=== PATIENT | female | born 1980 | race Asian ===

== ENCOUNTER → 2016-07-23 | Outpatient (CLI) | payer OTHER ==
[~2016-07-23] MED LIST: ACET-749 PO; MTR600X PO; PRENTAB26 PO
[2016-07-23 13:40] LABS: URINE APPEARANCE CLEAR (CLEAR); URINE BILIRUBIN NEG (NEG); URINE COLOR YELLOW; URINE NITRITE NEG (NEG); URINE SPECIFIC GRAVITY 1.003 (1.000-1.030); UROBILINOGEN NEG (NEG)
[2016-07-23 13:50] LABS: MANUAL MICROSCOPIC REQUIRED? NO; REVIEW REQ? NO
== END | disposition home or self-care (01) ==
LOC: C.LABSPEC 14:16
PROVIDERS: ATTEND Obstetrics & Gynecology
DX: O09.521 Supervision of elderly multigravida, first trimester (principal); Z3A.00 Weeks of gestation of pregnancy not specified

== ENCOUNTER → 2016-07-27 | Outpatient (CLI) | payer OTHER ==
[2016-07-29 16:31] LABS: CHLAMYDIA TRACH RNA*** NOT DETECTED (NOT DETECTED); GC (NEIS GONORRHOEAE)RNA** NOT DETECTED (NOT DETECTED)
== END | disposition home or self-care (01) ==
LOC: C.LABSPEC 13:52
PROVIDERS: ATTEND Obstetrics & Gynecology
DX: O09.521 Supervision of elderly multigravida, first trimester (principal)

== ENCOUNTER → 2016-08-24 | Outpatient (CLI) | payer OTHER ==
[2016-08-24 12:14] LABS: BASO % 0.3 %; BASO ABS # 0.02 K/uL (0-0.2); COMPLETE YES; EOS % 0.3 %; HEMATOCRIT 38.5 % (37-47); IG% 0.6 %; LYMPH % 18.1 %; LYMPH ABS # 1.43 K/uL (1.2-3.4); MEAN CELL VOLUME 87.9 fL (80-100); MEAN CORPUSCULAR HEMOGLOBIN 29.9 pg (25-34); MEAN PLATELET VOLUME 10.2 fL (7.4-10.4); MONO % 7.2 %; NEUT % 73.5 %; PLATELET COUNT 231 K/uL (130-400); RED BLOOD COUNT 4.38 M/uL (4.2-5.4); WHITE BLOOD COUNT 7.89 K/uL (4.8-10.8)
== END | disposition home or self-care (01) ==
LOC: C.LAB1850 09:32
PROVIDERS: ATTEND Obstetrics & Gynecology
DX: O09.521 Supervision of elderly multigravida, first trimester (principal)

== ENCOUNTER → 2016-09-14 | Outpatient (CLI) | payer OTHER ==
[2016-09-14 15:15] LABS: GTGD 50 Grams
== END | disposition home or self-care (01) ==
LOC: C.LAB1850 11:54
PROVIDERS: ATTEND Obstetrics & Gynecology
DX: O09.522 Supervision of elderly multigravida, second trimester (principal)

== ENCOUNTER → 2016-09-22 | Outpatient (CLI) | payer OTHER | END | disposition home or self-care (01) | LOC: C.LAB1850 07:11 | PROVIDERS: ATTEND Obstetrics & Gynecology | DX: O28.9 Unspecified abnormal findings on antenatal screening of mother (principal); Z3A.00 Weeks of gestation of pregnancy not specified ==

== ENCOUNTER → 2016-12-09 | Outpatient (CLI) | payer OTHER ==
[2016-12-09 11:46] LABS: URINE APPEARANCE CLEAR (CLEAR); URINE BILIRUBIN NEG (NEG); URINE COLOR YELLOW; URINE EPITHELIAL CELL AUTO 20-30 /lpf (0-5); URINE NITRITE NEG (NEG); URINE SPECIFIC GRAVITY 1.011 (1.000-1.030); UROBILINOGEN NEG (NEG)
[2016-12-09 11:58] LABS: MANUAL MICROSCOPIC REQUIRED? NO; REVIEW REQ? NO
== END | disposition home or self-care (01) ==
LOC: C.LABSPEC 11:12
PROVIDERS: ATTEND Obstetrics & Gynecology
DX: O09.293 Supervision of pregnancy with other poor reproductive or obstetric history, third trimester (principal); Z3A.00 Weeks of gestation of pregnancy not specified

== ENCOUNTER → 2016-12-23 | Outpatient (CLI) | payer OTHER ==
[2016-12-23 12:29] LABS: HEMATOCRIT 38.6 % (37-47)
== END | disposition home or self-care (01) ==
LOC: C.LAB1850 10:58
PROVIDERS: ATTEND Obstetrics & Gynecology
DX: O09.293 Supervision of pregnancy with other poor reproductive or obstetric history, third trimester (principal); Z3A.00 Weeks of gestation of pregnancy not specified

== ENCOUNTER → 2017-02-03 | Outpatient (CLI) | payer OTHER | END | disposition home or self-care (01) | LOC: C.LABSPEC 13:17 | PROVIDERS: ATTEND Obstetrics & Gynecology | DX: O09.523 Supervision of elderly multigravida, third trimester (principal); Z3A.00 Weeks of gestation of pregnancy not specified ==

== ENCOUNTER 2017-02-20 03:08 | Inpatient (IN) | payer OTHER ==
[~2017-02-20] VITALS: Ht 170.2 cm; Wt 67.2 kg
[~2017-02-20 03:08] MED LIST changes: -ACET-749 PO; -MTR600X PO
[2017-02-22] MEDS ORDERED: LACTATED RINGER'S 1000ML 1,000 ML IV PRN (08:00)
[2017-02-22] MEDS ORDERED: LACTATED RINGER'S 1000ML 1,000 ML IV SCH (08:00)
[2017-02-22 08:07] VITALS: Ht 170.2 cm; Wt 67.2 kg
[2017-02-22] MEDS ORDERED: LACTATED RINGER'S 1000ML 500 ML IV PRN ×2 (08:12→11:46)
[2017-02-22] MEDS ORDERED: OXYTOCIN 30 UNITS/500ML NSS IV PRN ×2 (08:15→15:00)
[2017-02-22 08:16] LABS: HEMATOCRIT 40.2 % (37-47); MEAN CELL VOLUME 90.3 fL (80-100); MEAN CORPUSCULAR HEMOGLOBIN 30.6 pg (25-34); MEAN CORPUSCULAR HGB CONC 33.8 g/dl (32-36); MEAN PLATELET VOLUME 9.5 fL (7.4-10.4); PLATELET COUNT 194 K/uL (130-400); RED BLOOD COUNT 4.45 M/uL (4.2-5.4); WHITE BLOOD COUNT 6.72 K/uL (4.8-10.8)
--- NOTE | 2017-02-22 09:20 | Medical Student: [facility] ---
Med Student History & Physical Date of Service Feb 22, 2017. Chief Complaint Induction History of Present Illness Source: patient, partner, clinic records, hospital records So "Adina Harris is a 36 year old Woman who is 38-6 weeks of Gestational Age who presents for induction of labor via cervical crook. Her course is complicated by Advanced Maternal Age and diet controlled Gestational Diabetes. She reports abdominal cramping and discomfort, but denies timed contractions. She endorsed a small amount of vaginal bleeding following the removal of the cervical Crook, but denies vaginal bleeding at any other time during the . Denies fluid loss. Endorses movement. Blood Type: A positive Rubella: Immune GBS: negative HBV: negative VDRL/RPR: negative Chlamydia: negative Gonorrhea: negative CBC (805, 02/22/17): Hgb 13.6, Hct 40.2, Plt 194, WBC 6.72 OB History Female. G1: Delivered a Female on 12/29/2012 via spontaneous vaginal delivery. Complicated by a 4th degree perineal laceration and mild post depression. 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) Allergies Coded Allergies: No Known Allergies (Unverified , 02/21/17) Home Medications Multivit/Min/Iron/Fol Ac/Pren ( Vitamin), 1 TAB PO DAILY Review of Systems Constitutional: No fever, No chills Eyes: No worsening of vision, No problem reported Respiratory: No cough, No shortness of breath Cardiovascular: No chest pain, No palpitations Abdomen: No nausea, No vomiting, No diarrhea, No constipation, No GI bleeding Musculoskeletal: No swelling, No calf pain Genitourinary - Female: + urinary frequency, + urinary incontinence (slight stress incontinence), + , No dysuria, No hematuria, No vaginal bleeding , No vaginal discharge Physical Exam General Appearance: WD/WN Respiratory/Chest: lungs clear, normal breath sounds Cardiovascular: regular rate, rhythm, no gallop, no murmur Abdomen / GI: non tender, soft, + pertinent finding (gravid uterus) Fundal Height: 36cm Genitourinary - Female: + pertinent finding (Cervix exam on admission performed by Dr. Oliva, Dilation 4.0, Effacement 70, Maribel (-1)) Extremities: normal inspection, no calf tenderness, no pedal edema Neurologic/Psych: alert, normal mood/affect, oriented x 3 Monitoring External Monitor: Category I Heart Rate Tracing. Baseline HR of 135 with moderate variability. Accelerations present and Decelerations absent. Tocodynamometer: Contractions irregular Laboratory Results 02/22/17 08:06 Test 02/22/17 08:06 Red Blood Count 4.45 M/uL (4.2-5.4) Mean Corpuscular Volume 90.3 fL (80-100) Mean Corpuscular Hemoglobin 30.6 pg (25-34) Mean Corpuscular Hemoglobin Concent 33.8 g/dl (32-36) RDW Standard Deviation 44.4 fL (36.4-46.3) RDW Coefficient of Variation 13.5 % (11.5-14.5) Mean Platelet Volume 9.5 fL (7.4-10.4) Assessment and Plan Assessment: Jovanna Harris (Kelly) is a 36 y/o Female at 38-6 weeks GA, with complications of Advanced Maternal Age and Diet controlled Gestational Diabetes. Tracing Category I Plan: Monitor mother and fetus with toco and EFM NPO except ice chips and clear liquids Induce with AROM and Pitocin Expect
[2017-02-22] MEDS ORDERED: BUPIVACAINE 0.25% 30 ML VIAL ONE (10:54)
[2017-02-22] MEDS ORDERED: EpHEDrine SULFATE INJ 50 MG/ML AMP ONE (10:55)
[2017-02-22] MEDS ORDERED: FENTANYL 2MCG/ML ROPIV 1.25MG/ML 100ML BAG EPI ONE (10:55)
[2017-02-22] MEDS ORDERED: FENTANYL CITRATE INJ 50 MCG/1 ML 2 ML VIAL ONE (10:56)
[2017-02-22] MEDS ORDERED: NALOXONE HCL INJ 1 MG in SODIUM CHLORIDE 0.9% 1000ML 1,000 ML IV PRN (11:46)
[2017-02-22] MEDS ORDERED: PROMETHAZINE HCL INJ 25 MG in SODIUM CHLORIDE 0.9% 50ML 50 ML IV PRN (12:00)
[2017-02-22] MEDS ORDERED: DiphenhydrAMINE HCL 50 MG/ML VIAL IV PRN (12:00)
[2017-02-22] MEDS ORDERED: FENTANYL 2MCG/ML ROPIV 1.25MG/ML 100ML BAG EPI PRN (12:00)
[2017-02-22] MEDS ORDERED: ONDANSETRON INJ 2 MG/ML 2 ML VIAL IV PRN (12:00)
[2017-02-22] MEDS ORDERED: NALOXONE HCL INJ 0.4 MG/1 ML VIAL/CARP IV PRN (12:00)
[2017-02-22] MEDS ORDERED: EpHEDrine SULFATE INJ 50 MG/ML AMP IV PRN (12:00)
[2017-02-22] MEDS ORDERED: NALBUPHINE HCL INJ 10 MG/ML AMP IV PRN (12:00)
[2017-02-22] MEDS ORDERED: OXYTOCIN INJ 20 UNITS in LACTATED RINGER'S 1000ML 1,000 ML IV SCH (15:00)
[2017-02-22] MEDS ORDERED: DIPHTHERIA/TETANUS/PERTUSSIS 0.5 ML SYR/VIAL IM. ONE (15:00)
[2017-02-22] MEDS ORDERED: ACETAMINOPHEN 325 MG TAB PO PRN (15:00)
[2017-02-22] MEDS ORDERED: ACETAMINOPHEN/CODEINE 300/30MG TAB PO PRN (15:00)
[2017-02-22] MEDS ORDERED: HYDROCORTISONE ACETATE 25 MG SUPP PR PRN (15:00)
[2017-02-22] MEDS ORDERED: LANOLIN OINT EXT PRN ×2 (15:00)
[2017-02-22] MEDS ORDERED: SUPERCREAM 0.870 % 15GM JAR EXT PRN (15:00)
[2017-02-22] MEDS ORDERED: BENZOCAINE 20% AER SPR 82.5 GM CAN EXT PRN (15:00)
--- NOTE | 2017-02-22 15:27 | Medical Student: [facility] ---
Medical Student Delivery Note So "Adina aHrris is a 36 y/o Female Female presenting for labor at 38-6 weeks Gestational age with a PETER of 03/01/2017. Patient received cervical crook catheter, AROM and oxytocin for induction of labor. Ms. Harris received an epidural for pain control and became fully effaced and dilated and began pushing. At 14:09 a viable female infant with JOSE MARTIN presentation was born. Baby was suctioned in the mouth and the nares and placed on mother's chest for drying /cleaning. Cord was doubly clamped and cut by father of baby. A three cord intact placenta was delivered with uterine massage and gentle downward traction. Mother experienced a 2nd degree perineal laceration repaired with 3- 0 vicryl in usual fashion. Hemostasis was achieved with oxytocin. EBL 100mL. Sponge and needle count correct. Mother and baby are doing well and recovering.
--- NOTE | 2017-02-22 15:27 | DELIVERY SUMMARY ---
DATE OF OPERATION: 02/22/2017 VAGINAL DELIVERY SUMMARY The patient dilated to complete and pushed to deliver a viable female infant, Apgars 8 and 9 via over a second degree perineal laceration. Mouth and nose bulb suctioned at the perineum. Nuchal cord x2 reduced at the perineum. Shoulders and body delivered with ease. Infant vigorous and cried at . Cord clamped at 30 seconds of life. on maternal abdomen. Cord then doubly clamped and cut. Placenta delivered spontaneously and intact with a 3-vessel cord. Hemostasis achieved with dilute Pitocin and uterine massage. Cervix and sulci intact. Laceration repaired in usual fashion using a 3-0 Vicryl. Mother and baby stable in recovery. EBL 300 mL. I attest to the content of the Intraoperative Record and any orders documented therein. Any exceptions are noted below. MTDD
--- NOTE | 2017-02-22 16:33 | Anesthesia Procedure Note ---
Anesthesia Epidural Removal Nt Date & Time Feb 22, 2017 at 16:32 Notes Mental Status: alert / awake / arousable, participated in evaluation Nausea / Vomiting: adequately controlled Pain: adequately controlled Airway Patency, RR, SpO2: stable & adequate BP & HR: stable & adequate Hydration State: stable & adequate Neuraxial Anesthesia: was administered Anesthetic Complications: no major complications apparent, pt satisfied with anesthetic care Epidural: removed without complications, with tip intact
[2017-02-22 17:00] VITALS: BP 118/74; PULSE 100; TEMP 36.7; O2SAT 97
[2017-02-22] MEDS: IBUPROFEN 600 MG TAB PO PRN ×2 (17:37→23:30)
[2017-02-22 19:40] VITALS: BP 96/62; PULSE 104; TEMP 36.8
[2017-02-22] MEDS: DOCUSATE SODIUM 100 MG CAP PO SCH (19:45)
[2017-02-22 23:25] VITALS: BP 97/64; PULSE 96; TEMP 36.8; O2SAT 98
[2017-02-23 03:45] VITALS: BP 93/60; PULSE 83; TEMP 36.5; O2SAT 97
[2017-02-23] MEDS: IBUPROFEN 600 MG TAB PO PRN ×4 (03:52→16:07)
[2017-02-23] MEDS: ACETAMINOPHEN/CODEINE 300/30MG TAB PO PRN ×2 (03:54→08:03)
--- NOTE | 2017-02-23 06:22 | Medical Student: [facility] ---
Med Student [employer] F[employer] Progress Nt Date of Service Feb 23, 2017. Subjective conversation w/ patient, conversation w/ family, physical exam, chart review, lab review, review of studies, review of inpatient medication list Ambulation: ambulating normally Voiding: no voiding problems Passing Gas: Yes Diet Tolerance: Regular Diet Lochia: Small Feeding Type: Breast Feeding Pain: Reports perineal discomfort controlled with ibuprofen and tylenol Notes: I spoke with Jovanna Harris and her partner this morning. She reported feeling well and had no concerns, on ROS she reports discomfort in the area of her perineal tear. No overnight events. Review of Systems Constitutional: No fever, No chills Respiratory: No cough, No shortness of breath Cardiac: No chest pain, No edema Breast: No problem reported Abdomen: No pain, No nausea, No vomiting Female : + problem reported (small amount of bleeding persists "getting a little better"), No dysuria denies headache and dizziness Objective Vital Signs Date Time Temp Pulse Resp B/P (MAP) Pulse Ox O2 Delivery O2 Flow Rate FiO2 02/23/17 03:45 36.5 83 18 93/60 (71) 97 Room Air 02/22/17 23:25 36.8 96 18 97/64 (75) 98 Room Air 02/22/17 23:25 Room Air 02/22/17 19:40 36.8 104 18 96/62 (73) Room Air 02/22/17 17:00 97 Room Air 02/22/17 17:00 36.7 100 16 118/74 (89) 97 Room Air Physical Exam General Appearance: WELL-APPEARING, WD/WN Respiratory/Chest: lungs clear, normal breath sounds Cardiovascular: regular rate, rhythm, no edema, no gallop, no murmur Abdomen: normal bowel sounds, non tender, soft Fundus: Non-Tender, Relation to Umbilicus (2 fingers below umbilicus) Extremities: normal inspection, no pedal edema, no calf tenderness Blood Type: A positive Rubella: Immune GBS: negative Afebrile Laboratory Results Last 24 Hours Test 02/22/17 08:06 White Blood Count 6.72 K/uL Red Blood Count 4.45 M/uL Hemoglobin 13.6 g/dL Hematocrit 40.2 % Mean Corpuscular Volume 90.3 fL Mean Corpuscular Hemoglobin 30.6 pg Mean Corpuscular Hemoglobin Concent 33.8 g/dl RDW Standard Deviation 44.4 fL RDW Coefficient of Variation 13.5 % Platelet Count 194 K/uL Mean Platelet Volume 9.5 fL Medications Current Inpatient Medications Medications (Trade) Dose Ordered Sig/Odin Route Start Time Stop Time Status Last Admin Dose Admin Oxytocin 20 units/ Lactated Ringer's 1,002 ml @ 125 mls/hr Q8H1M IV 02/22/17 15:00 02/23/17 07:01 Oxytocin (Pitocin IV) 30 units UD PRN IV 02/22/17 15:00 03/24/17 14:59 Benzocaine (Dermoplast Aero Spr) 1 appln PRN PRN EXT 02/22/17 15:00 03/24/17 14:59 Cocaine HCl (Supercream 0.870% Cr) BID PRN EXT 02/22/17 15:00 03/08/17 14:59 02/22/17 17:37 15 GM Hydrocortisone Acetate (Anusol Hc Supp) 25 mg BID PRN MA 02/22/17 15:00 03/24/17 14:59 Lanolin (Lanolin Oint) PRN PRN EXT 02/22/17 15:00 03/24/17 14:59 Ibuprofen (Motrin Tab) 600 mg Q4H PRN PO 02/22/17 15:00 03/24/17 14:59 02/23/17 03:52 600 MG Acetaminophen (Tylenol Tab) 650 mg Q6H PRN PO 02/22/17 15:00 03/24/17 14:59 Acetaminophen/ Codeine Phosphate (Tylenol w/ Codeine #3 Tab) 1 tab Q4H PRN PO 02/22/17 15:00 03/24/17 14:59 02/23/17 03:54 1 TAB Acetaminophen/ Codeine Phosphate (Tylenol w/ Codeine #3 Tab) 2 tab Q4H PRN PO 02/22/17 15:00 03/24/17 14:59 Docusate Sodium (coLACE CAP) 100 mg BID PO 02/22/17 20:00 03/24/17 19:59 02/22/17 19:45 100 MG Assessment and Plan Post- Day Number: 1 Continue Routine Care: Jovanna Harris is a 36 year old female PPD #1 following induction of labor for prior 4th degree perineal tear, and subsequent vaginal delivery. -Vital signs within normal limits (T36.5, P83, R18, BP 93/60, Sat97 on Room Air) -Predelivery Hbg 13.6; Continue to monitor the patient's bleeding and recovery from repaired 2nd Degree perineal laceration -Pain controlled with ibuprofen and tylenol #3 PRN -Encourage ambulation and -Provide routine post vaginal delivery care
--- NOTE | 2017-02-23 06:24 | Progress Note ---
Subjective Feb 23, 2017. Subjective conversation w/ patient, physical exam, chart review, lab review Ambulation: ambulating normally Voiding: no voiding problems Passing Gas: Yes Diet Tolerance: Regular Diet Lochia: Small Feeding Type: Breast Feeding Pain: Says some soreness in perineal region Comment: Found pt resting comfortably, pain controlled with PO meds, denies any acute concerns. Review of Systems Constitutional: No fever, No chills Respiratory: No cough, No shortness of breath Cardiac: No chest pain, No edema Abdomen: No nausea, No vomiting, No diarrhea Female : No dysuria Objective Vital Signs Date Time Temp Pulse Resp B/P (MAP) Pulse Ox O2 Delivery O2 Flow Rate FiO2 02/23/17 03:45 36.5 83 18 93/60 (71) 97 Room Air 02/22/17 23:25 36.8 96 18 97/64 (75) 98 Room Air 02/22/17 23:25 Room Air 02/22/17 19:40 36.8 104 18 96/62 (73) Room Air 02/22/17 17:00 97 Room Air 02/22/17 17:00 36.7 100 16 118/74 (89) 97 Room Air Physical Exam General Appearance: WELL-APPEARING, WD/WN, NO APPARENT DISTRESS Respiratory/Chest: lungs clear, normal breath sounds, no respiratory distress Cardiovascular: regular rate, rhythm, no edema, no murmur Abdomen: normal bowel sounds, non tender, soft Fundus: Firm, Non-Tender, Relation to Umbilicus (approx two down) Extremities: normal range of motion, no pedal edema, no calf tenderness Laboratory Results Last 24 Hours Test 02/22/17 08:06 White Blood Count 6.72 K/uL Red Blood Count 4.45 M/uL Hemoglobin 13.6 g/dL Hematocrit 40.2 % Mean Corpuscular Volume 90.3 fL Mean Corpuscular Hemoglobin 30.6 pg Mean Corpuscular Hemoglobin Concent 33.8 g/dl RDW Standard Deviation 44.4 fL RDW Coefficient of Variation 13.5 % Platelet Count 194 K/uL Mean Platelet Volume 9.5 fL Assessment and Plan Post- Day#: 1 Continue Routine Care: 36F s/p IOL and vaginal delivery, now PPD #1. - Blood type A positive. GBS negative. Rubella immune. - Vital signs reviewed and stable. - Pain controlled with motrin and tylenol #3.. - No leg swelling or tenderness on calf palpation. Encourage ambulation. - Encourage breast feeding. - Hemoglobin pre-delivery 13.6.. Bleeding has improved. Continue to monitor clinically. - Continue routine post-vaginal delivery care. - Pt agreed with above plan, all current questions answered. Parth Cee MD, PGY1 [employer] Prepress Physician Supervision Note: I was present with Dr. Cee during the history and exam. I discussed the case with the resident and agree with the findings and plan as documented in the note. Any exceptions or clarifications are listed here: doing well. desires d/c home later today. discussed use of otc med for pain. f/u 6 wks pp check up, instructions reviewed. Documented By: Odalis Pascual Resident Tracking Resident Involvement: Resident Care Provided Care Provided: OB Delivery (OB rounds)
[2017-02-23 07:18] VITALS: BP 97/60; PULSE 80; TEMP 36.7; O2SAT 99
--- NOTE | 2017-02-23 07:46 | Discharge Instructions ---
Discharge Instructions Date of Service Feb 23, 2017. Admission Reason for Admission: Induction Discharge Discharge Diagnosis / Problem: Recovery from vaginal delivery Discharge Goals Goal(s): Routine recovery after delivery Medications Continue Dispensed Medications: supercream, dermaplast, tucks, lansinoh Activity Recommendations Activity Limitations: per Instructions/Follow-up section . Instructions / Follow-Up Instructions / Follow-Up ACTIVITY RECOMMENDATIONS: * Gradual return to full activity over the next 2-3 weeks. * No lifting - nothing heavier than baby over the next 2-3 weeks. * Do not engage in vigorous exercise, sexual activity or sports until cleared by your physician. * Do not drive or operate any motorized equipment until cleared by your physician. * You may shower/bathe daily. MEDICATIONS: For discomfort or pain, you may use Acetaminophen (Tylenol), Ibuprofen (Advil), or Naproxen (Aleve) following the package directions. For constipation you may use Colace following the package directions. BREAST CARE: If you are not breast feeding: * Wear a supportive bra 24 hours a day for one to two weeks. * Avoid stimulating your breasts and nipples as much as possible during the first few weeks after delivery. * When taking a shower, have the warm water hit your back, not breasts. * When your breasts feel full, apply ice packs. Usually three to four times a day helps ease the discomfort. * Take a mild pain medication (Tylenol / Motrin) when you are uncomfortable. If breast feeding: * Use breast milk to lubricate nipples. Lansinoh cream may be used for sore nipples. You do not need to remove cream prior to breast feeding. If using a different brand of cream, check the label for directions regarding removal of cream prior to nursing. * Wear a supportive bra. * If having problems with breasts or breast feeding, call a regional engagement consultant or your health care provider. EPISIOTOMY CARE: After delivery, if you have an episiotomy (stitches), the following steps will ease discomfort and aid healing. * For the first 24 hours after delivery, place ice packs next to your episiotomy to help reduce swelling. * After the first 24 hour-period, sitz baths, either portable or in the tub, are suggested. A shower with a shower arm sprayed over the episiotomy may be comforting. * Corrie care should be done after each voiding and bowel movement. Squirt warm water from a plastic bottle over the perineum (region of the body between the anus and urinary opening) and pat dry. * Use Dermoplast to ease discomfort. Shake container. [place] directly over the episiotomy. Place a Tucks on a clean sanitary pad next to your episiotomy. SPECIAL CARE INSTRUCTIONS: When you are discharged from the hospital, it is important for you to follow the instructions listed below: * During the first week at home, you should be able to care for yourself and your baby. In addition, the usual light household activities are encouraged. * Limit your activities to the way you feel. Do not try to clean the house or move furniture. Be sensible. * If you actively engage in sports and have done so up until the time of your delivery, you may resume these activities as soon as you feel able. This may take up to one month or even longer. Use good judgment. * Continue to take your vitamins for at least six weeks after the of your baby. * Your diet need not be limited unless you were on a special diet before your delivery. Breast-feeding mothers need around 2500 calories per day and at least 64-80 ounces of fluid per day (8 to 10 glasses). * You should eat foods from the four major food groups. Crash diets or fad diets are to be avoided. Eating lean meats, fresh fruits and vegetables, low-fat dairy products, high fiber foods and a regular exercise program, will help you get back to your pre- weight without putting your health at risk. * Constipation is sometimes a problem after delivery. Take a mild laxative as needed. If breast feeding, Milk of Magnesia is acceptable to use. You may use a suppository or Fleets enema if no episiotomy. * A daily shower or tub bath is suggested. Be sure to thoroughly and gently dry the perineum. * A bloody vaginal discharge will usually continue until around four weeks post . A small amount of bleeding may continue for as long as six weeks. Vaginal discharge changes from the bright red bleeding after delivery to pink then brownish and finally yellowish-pink before becoming white and disappearing. * Bleeding may increase with activity. Your first period may come in 4-8 weeks. If you are breast feeding, your period may be delayed even longer. * [place] (sex) can begin whenever both you and your partner feel comfortable and do not have any form of genital infection. It is recommended that you wait at least six weeks for internal and external healing to occur. If you have questions, please talk to your health care practitioner. A condom should be used to prevent infection and . * Foreplay, gentle intercourse and lubrication is very important the first several times to prevent pain. A water-based lubricant such as K-Y jelly or Astroglide may be used. * If you have RH negative blood and your baby is RH positive, you will receive RHOGAM by injection prior to discharge. The nurse will give you a card to keep with you that has the date and place that you received RHOGAM after delivery. * During your care, you had a Rubella screen done to check for the presence of rubella antibodies in your blood. If your test was negative, you will receive a Rubella vaccine prior to discharge. This vaccine may cause a fever, soreness at the injection site and flu-like symptoms. If these symptoms persist, notify your health care practitioner. is not advised for one month after a Rubella vaccine. * Verbalizes understanding of car seat law as reviewed with patient nursing. * Car Seat hand-out given and reviewed with patient by nursing. * Shaken baby information reviewed with patient by nursing. Call you doctor if: * Heavy bleeding (saturating several pads an hour) or passing clots the size of your fist. * A fever >101 degrees F (38.3 degrees C) on two occasions four hours apart and /or chills. * Unusual pain in the pelvic or vaginal areas. * "Baby Blues" lasting longer than two weeks. If you have any questions or concerns, call your health care practitioner at . FOLLOW UP VISIT: * Please call the office at to schedule a 6 week examination. It is important you keep this appointment. It is important for you to make arrangements for either yearly or twice yearly check-ups thereafter. Current Hospital Diet Patient's current hospital diet: Regular OB Diet Discharge Diet Recommended Diet: Regular OB Diet Pending Studies Studies pending at discharge: no Medical Emergencies . Who to Call and When: Medical Emergencies: If at any time you feel your situation is an emergency, please call 911 immediately. . Non-Emergent Contact Non-Emergency issues call your: [employer] . . "Provider Documentation" section prepared by Parth Cee. . VTE Core Measure Inpt VTE Proph given/why not?: Treatment not indicated
[2017-02-23] MEDS: DOCUSATE SODIUM 100 MG CAP PO SCH (08:02)
[2017-02-23 09:34] VITALS: O2SAT 99
[2017-02-23 11:41] VITALS: BP 110/76; PULSE 76; TEMP 36.5
[2017-02-23 17:49] VITALS: BP_DIAS 76; PULSE 76; TEMP 36.5
== END 2017-02-23 15:50 | disposition home or self-care (01) | DRG 775 ==
LOC: C.LD 02-22 07:48 → C.OBG 02-22 16:56
PROVIDERS: ADMIT Obstetrics & Gynecology; ATTEND Obstetrics & Gynecology
PROC: 3E033VJ Introduction of Other Hormone into Peripheral Vein, Percutaneous Approach (ICD-10-PCS; principal; 2017-02-22)
PROC: 10E0XZZ Delivery of Products of Conception, External Approach (ICD-10-PCS; principal; 2017-02-22)
PROC: 0U7C7ZZ Dilation of Cervix, Via Natural or Artificial Opening (ICD-10-PCS; principal; 2017-02-22)
PROC: 0KQM0ZZ Repair Perineum Muscle, Open Approach (ICD-10-PCS; principal; 2017-02-22)
DX: O70.1 Second degree perineal laceration during delivery (principal); O69.81X0 Labor and delivery complicated by cord around neck, without compression, not applicable or unspecified; Z37.0 Single live birth; Z3A.39 39 weeks gestation of pregnancy

== ENCOUNTER 2017-02-21 19:05 | Outpatient (CLI) | payer OTHER ==
[~2017-02-21] VITALS: Ht 170.2 cm; Wt 67.5 kg
[~2017-02-21 19:05] MED LIST changes: +ACET-749 PO; +MTR600X PO
[2017-02-21 20:00] VITALS: Ht 170.2 cm; Wt 67.5 kg
== END 2017-02-21 21:00 | disposition home or self-care (01) ==
LOC: C.LD 19:05 → C.OPB 19:05
PROVIDERS: ATTEND Obstetrics & Gynecology
DX: O26.893 Other specified pregnancy related conditions, third trimester (principal); O09.523 Supervision of elderly multigravida, third trimester; Z3A.39 39 weeks gestation of pregnancy

== ENCOUNTER → 2017-04-18 | Outpatient (CLI) | payer OTHER ==
[~2017-04-18] MED LIST changes: -ACET-749 PO; -MTR600X PO
== END | disposition home or self-care (01) ==
LOC: C.LAB1850 09:04
PROVIDERS: ATTEND Obstetrics & Gynecology
DX: O24.410 Gestational diabetes mellitus in pregnancy, diet controlled (principal); Z3A.00 Weeks of gestation of pregnancy not specified